=== PATIENT | female | born 1945 | race Caucasian/White ===

== ENCOUNTER → 2023-05-29 11:14 | Outpatient (CLI) | payer MEDICARE, OTHER, SELFPAY ==
[2023-05-29 12:14] LABS: Add Manual Diff / Slide Review NO; Basophils Absolute Auto 100 /uL (0-100); Basophils Percent Auto 0.7 % (0-2); Eosinophils Absolute Auto 100 /uL (0-450); Eosinophils Percent Auto 0.7 % (2-4); Hematocrit 36.8 % (36-46); Hemoglobin 12.5 g/dL (12.0-16.0); Lymphocytes Absolute Auto 1100 /uL (1100-4500); Lymphocytes Percent Auto 13.8 % (25-40); Mean Corpuscular Hemoglobin 33.2 PG (26-34); Mean Corpuscular Volume 97.5 fL (80-100); Monocytes Absolute Auto 800 /uL (0-900); Monocytes Percent Auto 10.6 % (3-14); Neutrophils Absolute Auto 5800 /uL (1500-7000); Neutrophils Percent Auto 74.2 % (50-75); Platelet Count 354 X10^3/uL (150-400); Red Blood Cell Count 3.78 X10^6/uL (4.0-5.2); Red Cell Distribution Width 14.3 % (11.6-14.8); White Blood Cell Count 7.8 X10^3/uL (4.5-11.0)
[2023-05-29 12:17] LABS: Appearance Urine UA CLEAR; Bilirubin Urine UA NEGATIVE (NEGATIVE); Color Urine UA YELLOW; Glucose Urine UA NEGATIVE (Negative); Ketones Urine UA NEGATIVE (NEGATIVE); Leukocyte Esterase Urine UA 1+ (NEGATIVE); Nitrite Urine UA NEGATIVE (Negative); Occult Blood Urine UA NEGATIVE (Negative); Protein Urine UA NEGATIVE (Negative); Specific Gravity Urine UA <=1.005 (1.000-1.035); Urobilinogen Urine UA 0.2 E.U./dL (0.2)
[2023-05-29 12:43] LABS: Bacteria Urine None Seen; Culture Indicated Urine Specimen Cultured; RBC Urine None Seen (0-5/HPF); Squamous Epithelial Cell Urine None Seen (0-5/HPF); WBC Urine 0-1/HPF (0-5/HPF); pH Urine UA 5.5 (4.5-8.0)
[2023-05-29 12:46] LABS: BUN Creatinine Ratio 26.7 (6-22); Blood Urea Nitrogen 16 mg/dL (7-17); Calcium 8.8 mg/dL (8.4-10.2); Carbon Dioxide 29 mmol/L (22-32); Chloride 98 mmol/L (98-107); Estimated Glomerular Filt Rate > 60 mL/min (>60); Glucose 108 mg/dL (80-110); HEMOLYSIS 44 (0-50); Potassium 4.2 mmol/L (3.4-5.1); Sodium 133 mmol/L (137-145)
[2023-05-30 04:30] LABS: Labcorp Hemoglobin (Hb) A1c 5.8 % (4.8-5.6)
== END ==
PROVIDERS: PCP Family Medicine; Referring Provider Orthopaedic Surgery; Visit Provider Orthopaedic Surgery
DX: Z01.818 Encounter for other preprocedural examination (principal); R73.9 Hyperglycemia, unspecified; Z01.812 Encounter for preprocedural laboratory examination; N39.0 Urinary tract infection, site not specified
CPT/HCPCS: 36415; 80048; 81001; 83036; 85025; 87086; 93005

== ENCOUNTER 2023-07-01 11:25 | Day surgery (SDC) | payer MEDICARE, OTHER, SELFPAY ==
[2023-06-23 12:49] VITALS: BMI 29.2
[2023-07-01] VITALS (13 sets, daily range): BP systolic 120–182; BP diastolic 42–99; PULSE 64–96; RESP 12–20; TEMP 35.8–36.6; O2SAT 92–100; BMI 28.5
--- NOTE | 2023-07-01 | DI.RAD.S_ITS ---
PROCEDURE: XR HIP W PEL IF DONE LT 2V INDICATIONS: ANTERIOR HIP TECHNIQUE: 2 views of the hip were acquired. COMPARISON: [facility], , XR HIP W PEL IF DONE RT 2V, 07/01/2023, 15:28. FINDINGS: Bones: Total left hip prosthesis in good position. Moderate right hip osteoarthritis. Degenerative changes noted lower lumbar spine. Pelvic ring is intact. Soft tissues: No suspicious soft tissue calcifications or masses. IMPRESSION: Total left hip prosthesis in good position. Approved by: Zia Sanders M.D. on 07/01/2023 at 17:32
--- NOTE | 2023-07-01 06:00 | DI.RAD.S_ITS ---
PROCEDURE: XR HIP W PEL IF DONE RT 2V INDICATIONS: ANTERIOR HIP TECHNIQUE: 2 view(s) of the hip acquired. COMPARISON: None. FINDINGS: Bones: Patient is status post right hip arthroplasty, with hardware components in expected positions. The hip joint appears congruent. The visualized bony structures appear intact. Soft tissues: Overlying postoperative changes are noted. No suspicious soft tissue densities. IMPRESSION: Expected postsurgical change for right hip arthroplasty. Dictated by: Tish Nowak MD, PhD on 07/01/2023 at 16:45 Approved by: Tish Nowak MD, PhD on 07/01/2023 at 16:45
[2023-07-01] MEDS: PREGABALIN 75 MG CAPSULE PO (11:49)
[2023-07-01] MEDS: ACETAMINOPHEN 325 MG TABLET 975 MG PO (11:49)
[2023-07-01] MEDS: LACTATED RINGERS 1,000 ML 42 ML IV ×2 (12:12→14:39)
[2023-07-01] MEDS: VANCOMYCIN 1,000 MG/200 ML PIGGYBACK 200 MG IV (12:55)
--- NOTE | 2023-07-01 13:33 | PM.PREOP ---
Pre-operative Note Interval Note History & Physical reviewed/Exam performed by Physician: Yes Changes to H&P: No
--- NOTE | 2023-07-01 13:34 | P.OP_ITS ---
Operative Date/Time/Diagnoses Date of procedure: 07/01/23 Time of procedure: 14:30 Pre-op diagnosis: Left total hip arthroplasty anterior approach Post-op diagnosis: same Procedure & Clinicians Procedure: Left total hip arthroplasty anterior approach Same procedure as scheduled: Yes Indications: The patient has had progressively worsening left hip pain with radiographic changes consistent with arthritis. Non-operative management has failed and the patient has requested total hip replacement. The risks, benefits and alternatives to surgery were discussed with the patient prior to proceeding. Risks discussed included, but were not limited to, failure to relieve pain, leg length discrepancy, dislocation, stiffness, infection, nerve damage, deep venous thrombosis, pulmonary embolism, stroke, coma, heart attack, permanent paralysis and , as well as the potential need for eventual revision of the prosthetic. Surgeon: Nelly Slater Maintenance And Operations Supervisor: Karan Ramirez Anesthesia Type: General and Spinal Operative Notes Findings: Severe left hip arthritis, small bone, adequate stability, Closure Type: primary Specimen(s): none sent Prosthetic devices, grafts, tissues, transplants, or devices: Anthology size 1 standard offset, 36 x -3 cobalt chrome, 52 R3 cup, neutral poly liner, one 6.5 mm screw Estimated Blood Loss (mL): 250 Blood products transfused: none Procedure in detail: The patient was brought to the operating room. Patient was carefully positioned in the supine position. Time-out was performed and antibiotics were given. Anesthesia was induced. She was positioned in the on the table in order to allow hyperextension of the hip. The left lower extremity was prepped and draped in a standard sterile fashion. An anterior left hip incision was made 1 fingerbreadth lateral to the anterior superior iliac spine and extended distally towards the greater trochanter. Dissection was carried out through skin and subcutaneous tissues. Superficial hemostasis was achieved. The fascia over the tensor fascia loulou was defined and incised with a knife. Two Allis clamps were used to grasp the fascia. Tensor fascia loulou was retracted laterally. A gelpi retractor was placed. Dissection was carried out down along the neck. The circumflex vessels were carefully identified and cauterized with the Aqua Mantis. A PA was used during the procedure and was essential for intraoperative retra ction. They were used for safe implantation of the components, assistance with hemostasis and assistance with visualization. There was good visualization of the femoral neck. A Cobra was placed superior to the neck and the gluteus fibers were carefully stripped from that superior aspect of the capsule. A 2nd retractor was placed along the inferior aspect of the neck. The rectus insertion along the capsule was partially released. A 3rd retractor that was then gently placed over the rim of the acetabulum under the rectus. Capsule was carefully incised and released from the intertrochanteric line circumferentially superior to the mid sagittal line and inferiorly to the mid sagittal line until the lesser trochanter was palpable. A tag stitch was placed both in the superior and inferior limb of the capsular insertion. Along the acetabulum capsule was also released up to the mid sagittal 12:00 position. A portion of the labrum was resected. A saw was used to perform an osteotomy at the level of the intertrochanteric line and the junction of the superior femoral neck leaving approximately 1 finger breath of residual inferior neck above the lesser trochanter. A 2nd cut was made along the femoral neck at the base of the head and a napkin ring of neck was removed. Corkscrew was placed in the femoral head and the head was removed without difficulty. Retractors were then repositioned around the acetabulum. Residual labrum was resected and additional osteophytes were removed. A reamer that was 4 mm below the templated size was placed by hand in the acetabulum and it was reamed to centralize the acetabulum. It was then reamed up to 2 under the templated size and fluoroscopy was brought in to confirm the position of the reaming and depth of reaming. I reamed 1 under the anticipated size. A trial cup was placed and noted that it was appropriately sized and fluoroscopy confirmed position and depth. The component was open and inserted without difficulty fluoroscopic imaging was used to confirm that the cup had been adequately seated and was well positioned. It was further stabilized with a single screw. Neutral poly liner was placed. The cup was tested and noted to be stable. Attention was then directed to the femur. The femur was gently hyperextended additional capsular release was performed as needed in order to allow adequate visualization of the proximal femur with elevation of the femur. Patient was placed in a hyperextended slightly adducted position with maximum external rotation. Box osteotome was used to check for any residual neck as well as scle rotic bone along the trochanter. Cromwell pepper was placed in the femur. Additional broaching was performed. Canal finder was used to determine the alignment of the canal and position. Size 1 broach was placed. The canal was then appropriately broached up to the templated size as long as there was adequate stability of the broach and serial advancement of the broach without excessive impingement. Specific attention was directed at avoiding varus attempting to direct the distal aspect of the broach more anteriorly and avoiding excessive anteversion. Trial reduction showed acceptable range of mot ion, good stability, no posterior impingement, quaker of leg length and appropriate lateral shuck. I also hyperflexed the hip and checked that there was no impingement anteriorly and there was good stability with flexion, adduction and internal rotation. Marcaine and Exparel were injected.. The stem was placed without difficulty. Repeat trial reduction and x-ray showed acceptable overall position, length, and no evidence of the femoral fracture. Final head was placed. Wound was meticulously irrigated with normal saline. The hip was reduced and additional Exparel and Marcaine were injected. The capsule was closed with interrupted nonabsorbable sutures. The fascia of the tensor was closed with interrupted and running Vicryl. No drain was placed. Any tensor fascia loulou muscle that appeared to be contused or injured which was a minimal amount was carefully resected. Capsule around the tensor was injected with Exparel and Marcaine. The skin was closed with barbed stitches for the subcutaneous tissue and skin. We also used a few skin clips. The wound was dressed sterilely. Brief Betadine soak was also used and was meticulously irrigated with normal saline. Patient was transferred to recovery room in satisfactory condition. Complications: none Post-operative Condition: stable Disposition: Acute Care Plan for aftercare: The patient will be maintained on a standard total hip replacement protocol with weight bearing as tolerated and anterior hip precautions. The patient will receive Aspirin and sequential compression devices for DVT prophylaxis. The patient will be discharged home when safe for the home environment.
[2023-07-01] MEDS: CEFAZOLIN 2 GM/100 ML PREMIX 100 ML IV ×2 (14:05→21:42)
[2023-07-01] MEDS: TRANEXAMIC ACID 1,000 MG VIAL 1000 MG INJ ×2 (14:29→16:15)
[2023-07-01] MEDS: BUPIVACAINE LIPOSOME 266 MG/20 ML VIAL INJ (14:41)
[2023-07-01] MEDS: BUPIVACAINE 0.25% (PF) 60 ML, EPINEPHrine 0.3 MG INJ (14:41)
--- NOTE | 2023-07-01 14:46 | SUR.OPER ---
Supine on padded Carpenter table with bilateral legs secured in padded positioning boots and suspended in positioning spars, operative leg in traction per surgeon. Head on one pillow. Arm on non-operative side secured on padded armboard <90 degrees abduction. Arm on operative side padded and resting across chest then secured with tape over sheet. Padded perineal post in place per surgeon.
[2023-07-01] MEDS: ACETAMINOPHEN 325 MG TABLET 650 MG PO (18:10)
[2023-07-01] MEDS: IBUPROFEN 400 MG TABLET PO ×2 (18:10→21:43)
[2023-07-01] MEDS: LACTATED RINGERS 1,000 ML 100 ML IV ×2 (18:10→21:44)
[2023-07-01] MEDS: ONDANSETRON 4 MG ODT PO (18:10)
[2023-07-01] MEDS: ALBUTEROL 2.5 MG/3 ML NEB (ADULT) INH (19:30)
[2023-07-01] MEDS: COLCHICINE 0.6 MG TABLET PO (21:42)
[2023-07-01] MEDS: ASPIRIN EC 81 MG TABLET PO (21:43)
[2023-07-01] MEDS: DOCUSATE 100 MG CAPSULE PO (21:43)
[2023-07-02] MEDS: OXYCODONE IR 5 MG TABLET PO (00:27)
[2023-07-02] MEDS: ACETAMINOPHEN 325 MG TABLET 650 MG PO ×3 (00:28→11:57)
[2023-07-02] MEDS: IBUPROFEN 400 MG TABLET PO ×3 (00:28→09:14)
[2023-07-02] MEDS: CEFAZOLIN 2 GM/100 ML PREMIX 100 ML IV (05:52)
[2023-07-02 06:00] VITALS: BP 131/58; PULSE 75; RESP 20; TEMP 36.1; O2SAT 97
[2023-07-02 06:15] LABS: Hematocrit 29.8 % (36-46); Hemoglobin 10.2 g/dL (12.0-16.0)
--- NOTE | 2023-07-02 07:58 | PM.PNPO.1 ---
Subjective Subjective Interval history: Patient is resting comfortably in bed this morning. She states that she had some increased pain last night which was well controlled with medication and ice. Ice has been helping a lot. Denies fever, chills, shortness of breath. No numbness or tingling to the distal extremity. Exam Vital Signs (past 8 hours): - 07/02/23 06:00 Temperature 97.0 F L Pulse Rate 75 Respiratory Rate 20 Blood Pressure 131/58 L Pulse Oximetry 97 Oxygen Flow Rate 0 Oxygen Delivery Method Room Air Oxygen Flow Rate 0 Narrative Exam Narrative: Pleasant 77 year old female. Awake, alert and oriented. Intraoperative aquacel bandage CDI. Mild bruising to lateral thigh. Strength and sensation intact to bilateral lower extremities. Bilateral calves soft, compressible, nontender to palpation. Objective Labs 07/02/23 06:00 Labs: Laboratory Results - last 24 hr 07/02/23 06:00 Hgb 10.2 L Hct 29.8 L PFSH Medical History Arthritis Asthma Basal cell carcinoma Concussion Elevated cholesterol History of pneumonia History of radius fracture History of shingles HTN (hypertension) Surgical History History of hemilaminectomy History of hysterectomy History of kyphoplasty History of removal of skin mole History of total knee arthroplasty History of total knee arthroplasty Hx of dilation and curettage Hx of surgical procedure Hx of surgical procedure Hx of tonsillectomy Social History household members: none Smoking Status: Former smoker alcohol intake: current Assessment & Plan Post-op Postoperative Procedures: Procedures Operation Date: 07/01/23 13:45 Actual Procedure Side Surgeon p Total Hip Arthroplasty-Anterior Left Nelly Slater MD Postoperative day: 1 Postoperative status: doing well Postoperative status narrative: Patient progressing as expected after left anterior total hip arthroplasty Postoperative plan: routine post-op care Quality VTE Deep Vein Thrombosis/Pulmonary Embolism Present on Admission: No
--- NOTE | 2023-07-02 08:03 | P.DS_ITS ---
History of Present Illness History of Present Illness Chief complaint: Left Total Hip Arthroplasty/Anterior 07/01 Narrative: Patient is resting comfortably in bed this morning. She states that she had some increased pain last night which was well controlled with medication and ice. Ice has been helping a lot. Denies fever, chills, shortness of breath. No numbness or tingling to the distal extremity. Discharge Providers Provider Discharge Date: 07/02/23 Primary care physician: Rani Mcgowan MD Consults: 07/01/23 06:00 Consult to Anesthesiology Routine Comment: Consulting Provider: Anesthesiologist Reason for consultation: Regional block for post operative pain control 07/01/23 17:26 Consult to Discharge Planning Routine Comment: Consult to Occupational Therapy Evaluate & Treat Comment: Physician Instructions: Evaluate and treat Consult to Physical Therapy Evaluate & Treat Comment: Physician Instructions: post op SANDRA protocol Discharge provider: Anita Moreau PA-C Summary Hospital Course Discharge Diagnosis: s/p left anterior total hip arthroplasty Hospital Course: Operative Date/Time/Diagnoses Date of procedure: 07/01/23 Time of procedure: 14:30 Pre-op diagnosis: Left total hip arthroplasty anterior approach Post-op diagnosis: same Procedure & Clinicians Procedure: Left total hip arthroplasty anterior approach Same procedure as scheduled: Yes Indications: The patient has had progressively worsening left hip pain with radiographic gonzalez ges consistent with arthritis. Non-operative management has failed and the patient has requested total hip replacement. The risks, benefits and alternatives to surgery were discussed with the patient prior to proceeding. Risks discussed included, but were not limited to, failure to relieve pain, leg length discrepancy, dislocation, stiffness, infection, nerve damage, deep venous thrombosis, pulmonary embolism, stroke, coma, heart attack, permanent paralysis and , as well as the potential need for eventual revision of the prosthetic. Surgeon: Nelly Slater Welfare Director: Karan Ramirez Anesthesia Type: General and Spinal Operative Notes Findings: Severe left hip arthritis, small bone, adequate stability, Closure Type: primary Specimen(s): none sent Prosthetic devices, grafts, tissues, transplants, or devices: Anthology size 1 standard offset, 36 x -3 cobalt chrome, 52 R3 cup, neutral poly liner, one 6.5 mm screw Estimated Blood Loss (mL): 250 Blood products transfused: none Status at Discharge Cognitive/behavioral status at discharge: at baseline, oriented Functional status at discharge: uses cane/walker Overall status at discharge: patient is progressing back to baseline Exam Vital Signs (past 8 hours): - 07/02/23 06:00 Temperature 97.0 F L Pulse Rate 75 Respiratory Rate 20 Blood Pressure 131/58 L Pulse Oximetry 97 Oxygen Flow Rate 0 Oxygen Delivery Method Room Air Oxygen Flow Rate 0 Narrative Exam Narrative: Pleasant 77 year old female. Awake, alert, and oriented. Intraoperative Aquacel CDI. Strength and sensation intact to bilateral lower extremities. Bilateral c dunne soft, compressible, nontender to palpation. Objective Labs 07/02/23 06:00 Labs: Laboratory Results - last 24 hr 07/02/23 06:00 Hgb 10.2 L Hct 29.8 L PFSH Medical History Arthritis Asthma Basal cell carcinoma Concussion Elevated cholesterol History of pneumonia History of radius fracture History of shingles HTN (hypertension) Surgical History History of hemilaminectomy History of hysterectomy History of kyphoplasty History of removal of skin mole History of total knee arthroplasty History of total knee arthroplasty Hx of dilation and curettage Hx of surgical procedure Hx of surgical procedure Hx of tonsillectomy Social History household members: none Smoking Status: Former smoker alcohol intake: current Discharge Assessment & Plan Assessment and Plan Assessment: Patient is progressing well following left anterior SANDRA Plan of Treatment: Plan to work with physical therapy today. Discharge once safe for home e nvironment and cleared by PT. Continue multimodal pain regimen as needed. Keep dressing clean, dry, and intact until 2 week follow up with orthopedics. Discharge Plan Discharge Plan Patient Disposition: Home Discharge orders & Medications Discharge Orders: Discharge (Order); Ordered 07/02/23 Ordered By: Anita Moreau Prescriptions: New acetaminophen 325 mg Tablet 650 mg PO Q6H Qty: 120 0RF aspirin 81 mg Tablet,Delayed Release (Dr/Ec) 81 mg PO BID Qty: 84 0RF oxycodone 5 mg Tablet 5 mg PO Q4-6H PRN (Reason: Pain, Moderate (4-6)) Qty: 40 0RF Continued fluoxetine 40 mg Capsule 40 mg PO DAILY latanoprost 0.005 % Drops 1 drp OPHTHALMIC (EYE) DAILY atorvastatin 10 mg Tablet 10 mg PO DAILY leflunomide 10 mg Tablet 10 mg PO DAILY amlodipine 5 mg Tablet 7.5 mg PO DAILY acetaminophen 500 mg Tablet 500 mg PO QID alprazolam 0.25 mg Tablet 0.25 mg PO BEDTIME PRN (Reason: Insomnia) methotrexate sodium 15 mg Tablet 30 mg PO QWEEK Rx Instructions: split dose: 15mg am, 15mg pm ibuprofen 200 mg Tablet 200 mg PO Q6H PRN (Reason: Pain (Scale Score 1-3)) folic acid 1 mg Tablet 1 mg PO DAILY montelukast [Singulair] 10 mg Tablet 10 mg PO DAILY colchicine (gout) 0.6 mg Tablet 0.6 mg PO BID losartan 100 mg Tablet 100 mg PO DAILY loratadine [Claritin] 10 mg Tablet 10 mg PO DAILY levalbuterol tartrate 45 mcg/actuation Hfa Aerosol Inhaler 1 puff INHALATION Q4-6H PRN (Reason: Shortness Of Breath) ibandronate [Boniva] 150 mg Tablet 150 mg PO QMONTH Qvar RediHaler 80 mcg/actuation Hfa Aerosol Breath Activated 1 inh INHALATION BID PRN (Reason: Wheezing) Follow up/Referrals: Nelly Slater MD [Physician] - As previously scheduled (Follow up with Dannielle Moreau PA-C, on 07/15/2023 @ 3:00 pm at [facility] in [place].) Rani Mcgowan MD [Primary Care Provider] - Diet/Activity/Treatments Diet: Diet as Tolerated Activity: Weightbearing as tolerated to left leg. Anterior hip precautions. Cold/Heat Therapy: Ice to hip as needed Skin/Wound/Dressing Care Report to your healthcare provider any signs of infection, such as:: chills, fever, night sweats, unusual drainage and unusual redness Dressing: May shower. Leave dressing in place until follow up in office. No bathing or otherwise soaking incision. Call the office if dressing becomes saturated inside. Visit Report/Discharge Packet Instructions: DI for Hip Replacement Stand Alone Forms: Patient Portal/API, Surgery Discharge Discharge Data Primary Care Provider: Rani Mcgowan Attending Provider: Nelly Slater VTE Deep Vein Thrombosis/Pulmonary Embolism Present on Admission: No
--- NOTE | 2023-07-02 08:20 | OT.IP.EVAL ---
Current Diagnoses Unilateral primary osteoarthritis, left hip (07/01/23) Surgery Performed Operation Date: 07/01/23 13:45 Actual Procedures p Total Hip Arthroplasty-Anterior(Left) - Nelly Slater MD Past Medical History (Last Reviewed 07/02/23 @ 08:01 by Anita Moreau PA-C) Arthritis Asthma Basal cell carcinoma Concussion Elevated cholesterol History of pneumonia History of radius fracture History of shingles HTN (hypertension) Surgical History (Last Reviewed 07/02/23 @ 08:01 by Anita Moreau PA-C) History of hemilaminectomy History of hysterectomy History of kyphoplasty History of removal of skin mole History of total knee arthroplasty History of total knee arthroplasty Hx of dilation and curettage Hx of surgical procedure Hx of surgical procedure Hx of tonsillectomy Occupational Therapy Inpatient Evaluation/Re-Eval M1 PT/OT-IP Prior Functional Status Start: 07/02/23 08:44 Freq: NEEDED Status: Active Protocol: Document 07/02/23 08:20 [facility] (Rec: 07/02/23 09:06 [facility] [id number]) Medical Review Prior Functional Status Communication Independent Mobility and Gait Pt states only able to walk for 5 minutes before having to stop. Activities of Daily Living and IADL's Pt able to do her ADl and IADL needs with increased time. Social History Household Members none Living Arrangements House Number of Floors (Floors) One Floor Number of Stairs To Enter/Railing? Pt just has a threshold in order to get into her house. Home Environment Standard Height Toilet,Walk in Shower,Bidet Home Equipment Front Wheel Walker,Four Wheel Walker,Straight Cane,Senior Hadoop Developer, Grab Bars Near Toilet,Grab Bars In Shower Additional Social History Comment Pt's daughters to alternate to be able to stay with her. M2 OT-IP Current Condition Start: 07/02/23 08:44 Freq: Status: Active Protocol: Document 07/02/23 08:20 [facility] (Rec: 07/02/23 09:06 [facility] [id number]) Occupational Therapy Current Condition Current Condition Evaluation Date 07/02/23 Treatment Diagnosis S/P L SANDRA Anterior approach Diagnosis Onset Date 07/01/23 Post Operative Precautions Anterior Hip Precautions No Hip Extension,No Hip External Rotation M3 OT- IP Subjective and Pain Start: 08/16/23 08:44 Freq: Status: Active Protocol: Document 07/02/23 08:20 [facility] (Rec: 07/02/23 09:06 [facility] [id number]) OT- Subjective Occupational Therapy Visit Type Type Initial Evaluation Visit Start Time 08:20 Visit Stop Time 08:42 Total Visit Minutes 22 Occupational Therapy Visit Comments Patient Comments Pt already up with the nurse to the bathroom when OT came to see the pt. Patient/Caregiver Goals TO go home. OT Pain Assessment Pain When Pain Assessed During Mobility Pain Present Pain Present Denied Pain M4 OT- IP ADL's Start: 07/02/23 08:44 Freq: Status: Active Protocol: Document 07/02/23 08:20 [facility] (Rec: 07/02/23 09:06 [facility] [id number]) OT [id number]-Tfqfzeh General Evaluation Self-Feeding Ability Independent OT ADL-Grooming General Evaluation Grooming Ability Independent Comments OT Grooming Comments Able to stand with FWW, vc to keep the FWW in front of her at all times. OT ADL-Oral Care General Eval Oral Care Ability Independent OT ADL-Dressing General Eval Lower Body Dressing Ability Minimal Assistance Comments OT Dressing Comments Assist to straighten out her sock. Pt states will not be wearing socks and states good understanding to not externally rotate her left hip outward for any dressing needs. OT ADL-Toileting General Evaluation Toileting Ability Standby Assistance Comments OT Toileting Comments Pt able to use the toilet with SBA. Pt states has a bidet at home and also wears protection briefs. Pt has a toilet safety frame surrounding her toilet. OT ADL-Bathing Comments OT Bathing Comments Pt states has a built in seat and grab bars in the shower M5 OT- IP IADL's Start: 07/02/23 08:44 Freq: Status: Active Protocol: Document 07/02/23 08:20 [facility] (Rec: 07/02/23 09:06 [facility] [id number]) OT-Instrumental Activities of Daily Living Deficits IADL Deficits Identified Deficits Home Safety Awareness Awareness of Need for Assistance at Home Good Awareness Ability to Problem Solve Emergency Able to Problem Solve Situations Home Safety Comments Pt's daughters to be staying with her to assist with her needs. Medication Management Medication Management No Deficits Identified Money Management Money Management No Deficits Identified Meal Preparation Meal Preparation Caregiver Provides Assist Carbon Setter Carbon Setter Caregiver Provides Assist M6 OT- IP Functional Cognition Start: 07/02/23 08:44 Freq: Status: Active Protocol: Document 07/02/23 08:20 [facility] (Rec: 07/02/23 09:06 [facility] [id number]) Cognitive Factors Limiting Selfcare Function Cognitive Ability Level of Alertness Alert Patient Orientation Name,Age,Birthday,Month,Date, Year,Day of Week,Place, Situation Attention Span Ability Capable of Focused Attention, Capable of Sustained Attention Safety Awareness Decreased Ability to Apply Precautions Cognitive Comments Cognitive Assessment Comments Pt intact and mainly just needing vc to take smaller steps to ensure that her left hip does not go into hypertension. OT- Vision and Hearing OT- Hearing Assessment OT- Hearing Assessment WFL OT- Vision Assessment Visual Acuity Glasses All The Time M7 OT- IP Mobility and Balance Start: 07/02/23 08:44 Freq: Status: Active Protocol: Document 07/02/23 08:20 [facility] (Rec: 07/02/23 09:06 [facility] [id number]) OT-Transfer Assessment Sit to and From Stand Sit to and from Stand Standby Assistance Transfers Transfer Ability Standby Assistance Technique Transfer Destination Chair,Toilet Transfer Technique Stand Step Pivot Devices Transfer Assistive Devices Front Wheeled Walker Comments Mobility Comments SBA with mobility in the room with FWW. OT- Gait Assessment Assistive Devices Assistive Device Front Wheeled Walker OT- Balance Assessment Sitting Balance and Reactions Static Sitting Balance Ability Normal Dynamic Sitting Balance Ability Good Standing Balance and Reactions Static Standing Balance Ability Good Dynamic Standing Balance Ability Good M8 OT- IP Objective Assessments Start: 07/02/23 08:44 Freq: Status: Active Protocol: Document 07/02/23 08:20 [facility] (Rec: 07/02/23 09:06 [facility] [id number]) OT Strength Comments Strength Comments WFl for age and lifestyle. OT- Coordination Assessment Comments Coordination Comments Arthritic change in her hands. M9 OT- IP Assessment and Plan Start: 07/02/23 08:44 Freq: Status: Active Protocol: Document 07/02/23 08:20 [facility] (Rec: 07/02/23 09:06 [facility] [id number]) OT Summary Assessment and Plan Potential Rehabilitation Potential Excellent Analytic Complexity at Evaluation Low Summary OT Impairments Balance,Functional Mobility, Dressing,Bathing,Shower Transfers Progress Towards Goals Progressing Toward Goals Assessment Summary Pt low complexity and doing well after S/P L SANDRA anterior approach. Pt mainly just needing occasional reminders to not take too long of steps to ensure pt does not hyperextend her left hip. Pt's daugthers to be staying with her to assist with her needs. Pt to go home with assist and outpt PT when medically stable . Goals Dressing Goal Independent Toileting Goal Independent Bathing Goal Independent Toilet Transfer Goal Independent Shower Transfer Goal Independent Days to Meet Goals 2 Frequency of Treatment Frequency Of Treatment Once a Day Treatment Plan OT Treatment Plan ADL Training,Functional Mobility,Patient/Family Education,Discharge Planning Discharge Recommendations OT Discharge Recommendations Home with Assistance, Outpatient PT Transportation Needs at Discharge Private Vehicle
[2023-07-02] MEDS: ASPIRIN EC 81 MG TABLET PO (09:14)
[2023-07-02] MEDS: DOCUSATE 100 MG CAPSULE PO (09:14)
[2023-07-02] MEDS: FLUoxetine 20 MG CAPSULE 40 MG PO (09:15)
[2023-07-02] MEDS: COLCHICINE 0.6 MG TABLET PO (09:15)
[2023-07-02] MEDS: LORATADINE 10 MG TABLET PO (09:15)
[2023-07-02] MEDS: ATORVASTATIN 20 MG TABLET 10 MG PO (09:15)
[2023-07-02] MEDS: MONTELUKAST 10 MG TABLET PO (09:15)
[2023-07-02] MEDS: FOLIC ACID 1 MG TABLET PO (09:15)
[2023-07-02 10:00] VITALS: BP 145/52; PULSE 77; RESP 16; TEMP 36.2; O2SAT 96
--- NOTE | 2023-07-02 10:37 | PT.IIE ---
Current Diagnoses Unilateral primary osteoarthritis, left hip (07/01/23) Surgery Performed Operation Date: 07/01/23 13:45 Actual Procedures p Total Hip Arthroplasty-Anterior(Left) - Nelly Slater MD Surgical History (Last Reviewed 07/02/23 @ 08:01 by Anita Moreau PA-C) History of hemilaminectomy History of hysterectomy History of kyphoplasty History of removal of skin mole History of total knee arthroplasty History of total knee arthroplasty Hx of dilation and curettage Hx of surgical procedure Hx of surgical procedure Hx of tonsillectomy Medical History (Last Reviewed 07/02/23 @ 08:01 by Anita Moreau PA-C) Arthritis Asthma Basal cell carcinoma Concussion Elevated cholesterol History of pneumonia History of radius fracture History of shingles HTN (hypertension) Physical Therapy Inpatient Evaluation/Re-Eval M1 PT/OT-IP Prior Functional Status Start: 07/02/23 08:44 Freq: NEEDED Status: Active Protocol: Document 07/02/23 09:15 [facility] (Rec: 07/02/23 10:37 [facility] [id number]) Medical Review Prior Functional Status Medical History Reviewed Yes Diet/Fluid Consistency Regular Communication Independent Mobility and Gait Pt states only able to walk for 5 minutes before having to stop. Activities of Daily Living and IADL's Pt able to do her ADl and IADL needs with increased time. Social History Household Members none Living Arrangements House Number of Floors (Floors) One Floor Number of Stairs To Enter/Railing? Pt just has a threshold in order to get into her house. Home Environment Standard Height Toilet,Walk in Shower,Bidet Home Equipment Front Wheel Walker,Four Wheel Walker,Straight Cane,Mud Worker, Grab Bars Near Toilet,Grab Bars In Shower Employment Status Retired Additional Social History Comment Pt's daughters to alternate to be able to stay with her. M2 PT-IP Current Condition Start: 07/02/23 08:00 Freq: NEEDED Status: Active Protocol: Document 07/02/23 09:15 [facility] (Rec: 07/02/23 10:37 [facility] [id number]) Physical Therapy Current Condition Current Condition Evaluation Date 07/02/23 Treatment Diagnosis Left anterior hip replacement Onset Date 07/01/23 M3 PT-IP Subjective Start: 07/02/23 08:00 Freq: NEEDED Status: Active Protocol: Document 07/02/23 09:15 [facility] (Rec: 07/02/23 10:37 [id number]) Subjective Physical Therapy Visit Type Type Initial Evaluation Visit Start Time 09:15 Visit Stop Time 09:40 Total Visit Minutes 25 Number of OCC THER Visits 0 Physical Therapy Visit Comments Patient Comments I'm feeling okay. Patient Goals To go home with her two daughters' help Therapy Pain Assessment Pain When Pain Assessed During Mobility Pain Present Pain Present Pain Reported Location Left Hip Intensity 2 Scale Used Numeric (0 - 10) Pain Management Techniques Distraction,Re-positioning M4 PT-IP Mobility and Gait Start: 07/02/23 08:00 Freq: NEEDED Status: Active Protocol: Document 07/02/23 09:15 [facility] (Rec: 07/02/23 10:37 [id number]) PT-Bed Mobility Assessment Supine to Sit Supine to Sit Independent,Head of Bed Elevated Sit to Supine Sit to Supine Independent,Bedrails Scooting Scooting to Edge of Bed Independent Scooting Up and Down in Bed Independent PT-Transfer Assessment Sit to and From Stand Sit to and from Stand Independent,Standby Assistance ,1 Person Assistance,Use of Upper Extremities Equipment Transfer Assistive Device Gait Belt,Front Wheeled Walker Orthotic/Prosthetic Devices or Brace: No Gait Assessment Gait Gait Assistance Required: Standby Assistance Distance (Feet) 100 Able to Maintain Weight Bearing Status Yes During Gait Assistive Devices Assistive Device Gait Belt,4 Wheeled Walker Orthotic/Prosthetic Devices or Brace: No Gait Deviations General Gait Pattern Antalgic,Decreased Stride Length Factors Limiting Gait Function Factors Limiting Gait Function Pain Comments Gait Comments Pt gait trains 5'x1, 80'x1 and 100'x1 with SBA to superv assistance with RW: she initially performs step-to gait and then does much better with step-through, normal gait, with cues to not step back too far with backing up to maintain anterior hip precautions. Her forward steps are not too far with normal gait pattern. Stair Climbing Assessment Evaluation Level of Assist On Stairs Standby Assistance,1 Person Assistance Devices Stair Climbing Assistive Devices Front Wheel Walker Technique/Endurance Stair Climbing Direction Ascend and Descend Stair Climbing Technique Step to Step Number of Steps Climbed 1 Query Text: Stair Climbing Set # Repetitions (reps) 1 Comments Stair Climbing Comments Use small curb-size step to mimic threshold at her house and she performs well with SBA , ascend first with right foot and descend first with left foot PT-Balance Assessment Sitting Balance and Reactions Static Sitting Balance Ability Good Dynamic Sitting Balance Ability Good Standing Balance and Reactions Static Standing Balance Ability Good Dynamic Standing Balance Ability Good Device Used RW M5 PT-IP Objective Assessments Start: 07/02/23 08:00 Freq: NEEDED Status: Active Protocol: Document 07/02/23 09:15 [facility] (Rec: 07/02/23 10:37 [id number]) Orientation Orientation/Cognition Level of Alertness Alert Orientation Name,Age,Birthday,Month,Date, Year,Day of Week,Place, Situation Language Function Ability No Deficits Noted Safety Awareness Understands Safety Issues Memory Description No Deficits Noted Gross Range of Motion Upper Extremity ROM Impairments Defer to OT Lower Extremity ROM Assessment Left Impaired Strength Lower Extremity Strength Assessment Left Impaired Comments Strength Comments MMT LLE deferred post-op and ankle and knee appear WFLs Sensation Assessment Sensation Gross Sensation WNL M6 PT-IP Treatment Start: 07/02/23 08:00 Freq: NEEDED Status: Active Protocol: Document 07/02/23 09:15 [facility] (Rec: 07/02/23 10:37 [id number]) Physical Therapy Treatment Education Education Provided Precautions,Weight Bearing Status,Post-Op Packet,Safety M7 PT-IP Assessment and Plan Start: 07/02/23 08:00 Freq: NEEDED Status: Active Protocol: Document 07/02/23 09:15 [facility] (Rec: 07/02/23 10:37 [id number]) PT Summary Assessment and Plan Potential Rehabilitation Potential Good Status of Condition at Evaluation Stable Summary Progress Towards Goals Safe For Discharge Assessment Summary Pt is a 77 y/o female presenting with good mobility post-op. Her BP in [facility] is low in sitting before treatment and before BP meds given today at 106/43, 78. She has some light-headedness after third, longer gait trial and her BP increases with systolic BP greater than 130 mmHg. Pt will d/c home with the help of her daughters. She does not have any further acute PT needs. She states she is setting up [facility] at d/c and PT does educate her that she will benefit from OPPT. Frequency of Treatment Frequency Of Treatment Discharge Precautions Anterior Hip Precautions No Hip Extension,No Hip External Rotation Weight Bearing Status Weight Bearing Status Weight Bear as Tolerated Recommendations To Nursing Amount of Assist Needed Standby Assistance,1 Person Assist Discharge Recommendations PT Discharge Recommendations Home with Assistance, Outpatient PT Transportation Needs at Discharge Private Vehicle
--- NOTE | 2023-07-02 13:09 | CM.DANOTE ---
Discharge Planning/Care Management CM Discharge Assessment Start: 07/02/23 12:56 Freq: Status: Active Protocol: Document 07/02/23 12:56 LORIE (Rec: 07/02/23 13:09 [facility] [id number]) Discharge Planning Assessment Assigned [employer] DPOA/Assigned Designee Name Zainab Rubin [phone] or Rani Rubin [phone]- daughters Advance Directives? Yes Advance Directives on File No History Provided By Patient,Medical Record Prior Living Arrangements House Household Members none Type of transporation used prior to Drives own vehicle admit Independent with ADL's Yes Is patient alert and oriented? Yes Barriers to Discharge No Comment POD1 from left SANDRA, patient planned to return home w/ daughters to assist and therapies have cleared her for this plan, no needs from this CM team identified Discharge Plan Home Transportation Arrangement Family Referrals Initiated None needed
--- NOTE | 2023-07-02 14:26 | PC.NURSE ---
Pt discharged home at 1340, escorted off floor in wheelchair, accompanied by hospital staff and daughter. IV removed, discharge teaching provided including new medications, anterior hip precautions, follow up appointments and wound care. Questions answered. Patient left the floor with all belongings.
== END 2023-07-02 14:00 | disposition home or self-care (01) ==
LOC: OR 11:26 → AC 11:27
PROVIDERS: PCP Family Medicine; Referring Provider Orthopaedic Surgery; Visit Provider Orthopaedic Surgery
PROC: (CPT 27130; principal; 2023-07-01 13:45)
DX: M16.12 Unilateral primary osteoarthritis, left hip (principal)
CPT/HCPCS: 27130; 36415; 73502; 76000; 85014; 85018; 94640; 97161; 97165; 97530; C1776; C9290; J0171; J0690; J2250; J2704; J7613

== ENCOUNTER 2024-09-14 11:06 | Inpatient (IN) | payer MEDICARE, OTHER, SELFPAY ==
[2023-07-01 11:33] VITALS: BMI 28.5
[2024-09-06 12:02] VITALS: BMI 28.3
[2024-09-14] VITALS (10 sets, daily range): BP systolic 134–184; BP diastolic 55–82; PULSE 74–89; RESP 12–16; TEMP 36.1–36.6; O2SAT 93–98; BMI 27.9
--- NOTE | 2024-09-14 | DI.RAD.S_ITS ---
PROCEDURE: [id number] W PEL IF PERFORMED INDICATIONS: LEFT TOTAL HIP REVISION TECHNIQUE: Fluoroscopic guidance utilized for a left total hip arthroplasty COMPARISON: None. FINDINGS: Fluoroscopic images submitted for a left total hip arthroplasty. Please see operative note for further discussion. IMPRESSION: Fluoroscopic guidance. Dictated by: Yuri Machado M.D. on 09/14/2024 at 19:27 Approved by: Yuri Machado M.D. on 09/14/2024 at 19:28
--- NOTE | 2024-09-14 06:00 | DI.RAD.S_ITS ---
PROCEDURE: XR HIP W PEL IF DONE LT 2V INDICATIONS: SANDRA TECHNIQUE: 2 view(s) of the hip acquired. COMPARISON: [facility], [place], XR HIP W PEL IF DONE LT 2V, 07/01/2023, 17:01. [facility], [place], XR HIP W PEL IF DONE RT 2V, 07/01/2023, 15:28. FINDINGS: Bones: Patient is status post left hip arthroplasty, with hardware components in expected positions. The hip joint appears congruent. The visualized bony structures appear intact. Soft tissues: Overlying postoperative changes are noted. No suspicious soft tissue densities. IMPRESSION: Expected post-operative appearance of a hip arthroplasty. Dictated by: Yuri Machado M.D. on 09/14/2024 at 19:03 Approved by: Yuri Machado M.D. on 09/14/2024 at 19:03
[2024-09-14] MEDS: LACTATED RINGERS 1,000 ML 42 ML IV ×2 (12:14→18:00)
[2024-09-14] MEDS: VANCOMYCIN 1,000 MG/200 ML PIGGYBACK 200 MG IV (12:30)
--- NOTE | 2024-09-14 13:56 | SUR.PREOP ---
Patient ambulating to the bathroom.
[2024-09-14] MEDS: ACETAMINOPHEN 325 MG TABLET 975 MG PO (14:05)
--- NOTE | 2024-09-14 14:08 | SUR.PREOP ---
Delay explained to patient and family. V/U. No other needs voiced at this time.
--- NOTE | 2024-09-14 15:15 | PM.PREOP ---
Pre-operative Note Interval Note History & Physical reviewed/Exam performed by Physician: Yes Changes to H&P: No
--- NOTE | 2024-09-14 15:15 | PM.PREOP ---
Pre-operative Note Interval Note History & Physical reviewed/Exam performed by Physician: Yes Changes to H&P: No
--- NOTE | 2024-09-14 15:17 | PM.OP.1 ---
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 Unfortunately she developed posterior instability. She did have a minor amount of subsidence of her stem and felt that her leg was a little bit short. Non-operative management has failed and the patient has requested revision total hip replacement. She has a history of 2 dislocations. The risks, benefits and alternatives to surgery were discussed with the patient prior to proceeding. Risks discussed included, but were not limited to, failure to relieve pain, leg length discrepancy, dislocation, stiffness, infection, nerve damage, deep venous thrombosis, pulmonary embolism, stroke, coma, heart attack, permanent paralysis and , as well as the potential need for eventual revision of the prosthetic. Surgeon: Nelly Slater Director Agricultural Services: Karan Ramirez Anesthesia Type: General Operative Notes Findings: Instability of the hip noted preoperatively, patient was quite lax with longitudinal traction. With hyperflexion the hip could be noted to sublux slightly posteriorly. Marked improvement in the in debility with dual mobility and lengthening Closure Type: primary Specimen(s): other (Culture and sensitivity and PCR) Prosthetic devices, grafts, tissues, transplants, or devices: [employer]hew dual mobility 52 liner, 28 mm +8 Oxinium head with dual mobility liner 40 x 28 Estimated Blood Loss (mL): 100 Blood products transfused: none Procedure in detail: The patient was brought to the operating room. Patient was carefully positioned in the supine position. Time-out was performed and antibiotics were given. Anesthesia was induced. She was positioned in the on the table in order to allow hyperextension of the hip. I initially started with an examination under anesthesia with fluoroscopy. We did longitudinal traction the hip was quite loose and easily subluxable with global mobility. I also specifically hyperflex the hip and adducted it and got a lateral C-arm view which did not show specific impingement but did look like there was a tendency towards posterior subluxation. She was then carefully positioned on the [place] table. The left lower extremity was prepped and draped in a standard sterile fashion. An anterior left hip incision was made 1 fingerbreadth lateral to the anterior superior iliac spine and extended distally towards the greater trochanter. Dissection was carried out through skin and subcutaneous tissues. I excised the patient's previous skin incision. Superficial hemostasis was achieved. There was a slight fascial patchy area suggesting prior fluid formation or seroma with healing. The fascia over the tensor fascia loulou was defined and the patient's previous incision along the fascia was carefully mobilized going through scar and carefully protecting the tensor fascia loulou. Two Allis clamps were used to grasp the fascia. Tensor fascia loulou was retracted laterally. A gelpi retractor was placed. Dissection was carried out down into the capsule. Fluid was removed and sent for culture and sensitivity. It was clear and did not appear purulent or suggestive of infection. Hemostasis was achieved with the Aqua Mantis. A PA was used during the procedure and was essential for intraoperative retraction and safe implantation of the components. There was good visualization of the femoral prosthesis and there was synovitis in the capsule. A specimen of synovium was sent for PCR and culture and sensitivity. A Cobra was placed superior to the neck. A 2nd retractor was placed along the inferior aspect of the neck and capsule. Capsule was mobilized by removing the prior tag stitches and placing new stitches. A tag stitch was placed both in the superior and inferior limb of the capsular insertion. With traction the hip was easily subluxable. The hip was dislocated. The head was removed. I carefully examined the overall position of the stem which looked like it had appropriate version. Acetabulum appeared to be in an appropriate position. I looked at this specifically at the anterior aspect of the acetabulum the superior aspect of the acetabulum. There did not appear to be an obvious area for impingement. I checked around the rim of the acetabular component. I looked at doing either a extended +4 acetabular liner or dual mobility and felt that dual mobility was a better option. The acetabular liner was removed without difficulty. Cultures were sent deep in the acetabulum and from the femur. The dual mobility liner was placed without difficulty. Trial reductions were then done with a +0 and a +4 femoral head. With a +4 femoral head there was good stability in hyperextension external rotation and with flexion within the limits of being. Adequate tension with longitudinal traction. Trial reduction showed acceptable range of motion, good stability, no posterior impingement, zoroastrian of leg length and appropriate lateral shuck. I also hyperflexed the hip and checked that there was no impingement anteriorly and there was good stability with flexion, adduction and internal rotation. Intraoperative films showed acceptable offset and leg lengths. Marcaine and Exparel were injected. Final head was placed. Wound was meticulously irrigated with normal saline. The hip was reduced and additional Exparel and Marcaine were injected. The capsule was closed with interrupted nonabsorbable sutures specifically attempting to reinforce the posterior capsule. The fascia of the tensor was closed with interrupted and running Vicryl. No drain was placed. Capsule around the tensor was injected with Exparel and Marcaine. The skin was closed with barbed stitches for the subcutaneous tissue and skin. We also used surgical glue. The wound was dressed sterilely. Brief Betadine soak was also used and was meticulously irrigated with normal saline. Patient was transferred to recovery room in satisfactory condition. Complications: none Post-operative Condition: stable Disposition: Acute Care Plan for aftercare: The patient will be maintained on a standard total hip replacement protocol with weight bearing as tolerated and anterior hip and posterior precautions. Plan is to attempt keep her foot at neutral and avoid hip hyperflexion and adduction and hyperextension. The patient will receive Aspirin and sequential compression devices for DVT prophylaxis. The patient will be discharged home when safe for the home environment.
[2024-09-14] MEDS: TRANEXAMIC ACID 1,000 MG VIAL 1000 MG INJ ×2 (16:07→17:50)
[2024-09-14] MEDS: CEFAZOLIN 2 GM/100 ML PREMIX 100 ML IV ×2 (16:08→22:18)
--- NOTE | 2024-09-14 16:37 | SUR.OPER ---
Supine on padded [place] table with bilateral legs secured in padded positioning boots and suspended in positioning spars, operative leg in traction per surgeon. Head on one pillow. Arm on non-operative side secured on padded armboard <90 degrees abduction. Arm on operative side padded and resting across chest then secured with tape over sheet. Padded perineal post in place per surgeon.
[2024-09-14] MEDS: BUPIVACAINE LIPOSOME 266 MG/20 ML VIAL INJ (16:48)
[2024-09-14] MEDS: BUPIVACAINE 0.25% (PF) 60 ML, EPINEPHrine 0.3 MG INJ (16:48)
[2024-09-14] MEDS: ACETAMINOPHEN 325 MG TABLET 650 MG PO (22:14)
[2024-09-14] MEDS: COLCHICINE 0.6 MG TABLET PO (22:15)
[2024-09-14] MEDS: ASPIRIN EC 81 MG TABLET PO (22:15)
[2024-09-14] MEDS: DOCUSATE 100 MG CAPSULE PO (22:15)
[2024-09-14] MEDS: OXYCODONE IR 5 MG TABLET PO (22:15)
[2024-09-14] MEDS: ATORVASTATIN 20 MG TABLET 10 MG PO (22:15)
[2024-09-14] MEDS: FOLIC ACID 1 MG TABLET PO (22:16)
[2024-09-14] MEDS: LOSARTAN 50 MG TABLET 100 MG PO (23:46)
[2024-09-14] MEDS: MONTELUKAST 10 MG TABLET PO (23:47)
--- NOTE | 2024-09-15 00:06 | PC.NURSE ---
patient resting in bed comfortably. A&O x 4. respirations even and unlabored on room air. O2 sats 96%. lung sounds cta. abdomen soft, nontender with active bowel sounds in all 4 quads. denies nausea. surgical incision on left hip covered with an aquacell dressing with some shadow drainage. ambulated to bedside commode as a 1 person assist w/ fww & gait belt with no issues. voided 300 ml, urine clear and yellow. after ambulating back to bed, complaining of 4/10 aching pain in the left hip. ice packs applied and prn oxycodone 5mg given. LR running at 100 mls/hr. iv site in right forearm asymptomatic and intact. scds applied. bed in lowest position with call light within reach.
[2024-09-15] MEDS: OXYCODONE IR 10 MG TABLET PO (01:52)
[2024-09-15] MEDS: LACTATED RINGERS 1,000 ML 100 ML IV (01:52)
[2024-09-15 02:00] VITALS: BP 133/67; PULSE 76; TEMP 36.3; O2SAT 91
[2024-09-15] MEDS: CEFAZOLIN 2 GM/100 ML PREMIX 100 ML IV (04:01)
[2024-09-15 04:41] LABS: Hematocrit 33.7 % (36-46); Hemoglobin 11.4 g/dL (12.0-16.0)
[2024-09-15 06:00] VITALS: BP 147/70; PULSE 71; RESP 12; TEMP 36.5; O2SAT 94
--- NOTE | 2024-09-15 07:26 | PM.DS.1 ---
History of Present Illness History of Present Illness Date Patient Seen: 09/15/24 Time Patient Seen: 07:15 Chief complaint: Left Total Hip Arthroplasty Revision Narrative: The patient had a left total hip arthroplasty from an anterior approach. Unfortunately she developed posterior instability. She did have a minor amount of subsidence of her stem and felt that her leg was a little bit short. Non-operative management has failed and the patient has requested revision total hip replacement. She has a history of 2 dislocations. The risks, benefits and alternatives to surgery were discussed with the patient prior to proceeding. Risks discussed included, but were not limited to, failure to relieve pain, leg length discrepancy, dislocation, stiffness, infection, nerve damage, deep venous thrombosis, pulmonary embolism, stroke, coma, heart attack, permanent paralysis and , as well as the potential need for eventual revision of the prosthetic. Discharge Providers Provider Date of admission: 09/14/24 11:06 Discharge Date: 09/15/24 Primary care physician: Rani Mcgowan MD Consults: 09/14/24 06:00 Consult to Anesthesiology Routine Comment: Consulting Provider: Anesthesiologist Reason for consultation: Regional block for post operative pain control Has provider been notified: No 09/14/24 19:05 Consult to Discharge Planning Routine Comment: Consult to Occupational Therapy Evaluate & Treat Comment: Physician Instructions: Evaluate and treat Consult to Physical Therapy Evaluate & Treat Comment: Physician Instructions: post op SANDRA protocol Discharge provider: Gil Sherman PA-C Summary Hospital Course Discharge Diagnosis: 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 With hyperflexion the hip could be noted to sublux slightly posteriorly. Marked improvement in the in debility with dual mobility and lengthening Closure Type: primary Specimen(s): other (Culture and sensitivity and PCR) Prosthetic devices, grafts, tissues, transplants, or devices: [employer]hew dual mobility 52 liner, 28 mm +8 Oxinium head with dual mobility liner 40 x 28 Estimated Blood Loss (mL): 100 Blood products transfused: none Status at Discharge Cognitive/behavioral status at discharge: oriented Functional status at discharge: uses cane/walker Time Spent with Patient Time spent: Less than 30 minutes Exam Vital Signs (past 8 hours): - 09/14/24 23:46 09/15/24 02:00 09/15/24 06:00 Temperature 97.3 F L 97.7 F Pulse Rate 79 76 71 Respiratory Rate 12 Blood Pressure 134/61 133/67 147/70 H Pulse Oximetry 91 94 Oxygen Flow Rate 0 0 Oxygen Delivery Method Room Air Oxygen Flow Rate 0 Narrative Exam Narrative: 5/5 strength in hip flexors, quadriceps, hamstrings, DF, PF, EHL bilaterally. Sensation to light touch intact throughout BLE. Calves soft, compressible, nontender. ?Dressing placed intraoperatively CDI. Objective Labs 09/15/24 04:25 Labs: Laboratory Results - last 24 hr 09/15/24 04:25 Hgb 11.4 L Hct 33.7 L PFSH Medical History (Updated 09/06/24 @ 13:37 by Sulema Macias RN) Gout Osteoarthritis Rheumatoid arthritis Elevated cholesterol HTN (hypertension) Arthritis Asthma History of shingles History of pneumonia Concussion History of radius fracture Basal cell carcinoma Surgical History (Updated 09/06/24 @ 12:10 by Sulema Macias RN) History of total left hip replacement (07/01/23) History of kyphoplasty History of total knee arthroplasty History of total knee arthroplasty History of hemilaminectomy Hx of surgical procedure Hx of surgical procedure Hx of dilation and curettage Hx of tonsillectomy History of removal of skin mole History of hysterectomy Social History household members: none Smoking Status: Former smoker alcohol intake: former Discharge Assessment & Plan Assessment and Plan Assessment: Status post left hip total arthroplasty replacement Plan of Treatment: Discharge to home. The patient will be maintained on a standard total hip replacement protocol with weight bearing as tolerated and anterior hip and posterior precautions. Plan is to attempt keep her foot at neutral and avoid hip hyperflexion and adduction and hyperextension. The patient will receive Aspirin 81 mg bid for 6 weeks DVT prophylaxis. Baseline multimodal pain control with ibuprofen 400 mg and acetaminophen 500 mg q.4 hours PRN. Patient has been already prescribed oxycodone and Zofran and instructed in their use. She has been at home. Start physical therapy in the next 5-10 days. Follow up clinic in 2 weeks for wound check. Discharge Plan Discharge Plan Patient Disposition: Home Provider Discharge Comment: DC pending PT Discharge orders & Medications Prescriptions: Continued latanoprost 0.005 % Drops 1 drp OPHTHALMIC (EYE) QPM atorvastatin 10 mg Tablet 10 mg PO DAILY amlodipine 5 mg Tablet 7.5 mg PO DAILY alprazolam 0.25 mg Tablet 12.5 mg PO BEDTIME PRN (Reason: Insomnia) methotrexate sodium 15 mg Tablet 30 mg PO QWEEK Rx Instructions: split dose: 15mg am, 15mg pm ibuprofen 200 mg Tablet 200 mg PO Q6H PRN (Reason: Pain (Scale Score 1-3)) folic acid 1 mg Tablet 1,000 mcg PO BID montelukast [Singulair] 10 mg Tablet 10 mg PO DAILY colchicine 0.6 mg Tablet 0.6 mg PO BID losartan 100 mg Tablet 100 mg PO DAILY loratadine [Claritin] 10 mg Tablet 10 mg PO DAILY aspirin 81 mg Tablet,Delayed Release (Dr/Ec) 81 mg PO BID Qty: 84 0RF Patient Comments: For post op. oxycodone 5 mg Tablet 5 mg PO Q4-6H PRN (Reason: Pain, Moderate (4-6)) Qty: 40 0RF Patient Comments: for post op acetaminophen 325 mg tablet 650 mg PO TID sulfasalazine 500 mg Tablet 1 g PO BID Rx Instructions: give with food (meal/snack) duloxetine 40 mg Capsule,Delayed Release(Dr/Ec) 40 mg PO QPM Hadlima PushTouch 40 mg/0.8 mL Auto-Injector 40 mg SUBCUT Q2W ibandronate 150 mg Tablet 150 mg PO QMONTH pantoprazole 40 mg Tablet,Delayed Release (Dr/Ec) 40 mg PO DAILY Follow up/Referrals: Erika Mathis PA-C [Advanced Pediatric Cardiologist] - 09/27/24 1:00 pm (Appt:09/27 @ 1:00 with Jackie EVANGELISTA @ [facility] ) Rani Mcgowan MD [Primary Care Provider] - Diet/Activity/Treatments Diet: Diet as Tolerated Activity: Ambulate multiple times a day. Use a cane or walker as needed. Full weight on leg. Cold/Heat Therapy: Use ice multiple times a day. Skin/Wound/Dressing Care Report to your healthcare provider any signs of infection, such as:: chills, fever, night sweats, unusual drainage and unusual redness Dressing: May shower. Leave dressing in place until follow up in office. No bathing or otherwise soaking incision. Call the office if the dressing becomes saturated inside. Visit Report/Discharge Packet Instructions: DI for Hip Replacement Stand Alone Forms: Patient Portal/API, Stroke Signs & Symptoms, Surgery Discharge Discharge Data Primary Care Provider: Rani Mcgowan
[2024-09-15 08:06] VITALS: BP 136/72; PULSE 72; RESP 16; TEMP 36.3; O2SAT 97
[2024-09-15] MEDS: AMLODIPINE 5 MG TABLET 7.5 MG PO (09:41)
[2024-09-15] MEDS: LORATADINE 10 MG TABLET PO (09:42)
[2024-09-15] MEDS: ACETAMINOPHEN 325 MG TABLET 650 MG PO (09:42)
[2024-09-15] MEDS: ASPIRIN EC 81 MG TABLET PO (09:43)
[2024-09-15] MEDS: FOLIC ACID 1 MG TABLET PO (09:43)
[2024-09-15] MEDS: COLCHICINE 0.6 MG TABLET PO (09:43)
[2024-09-15] MEDS: DOCUSATE 100 MG CAPSULE PO (09:43)
--- NOTE | 2024-09-15 09:43 | OT.IP.EVAL ---
Current Diagnoses Unspecified dislocation of left hip, sequela (09/14/24) Presence of left artificial hip joint (09/14/24) Surgery Performed Operation Date: 09/14/24 13:45 Actual Procedures p Total Hip Arthroplasty Revision, Acetabular component, anterior(Left) - Nelly Slater MD Past Medical History (Last Updated 09/06/24 @ 13:37 by Sulema Macias, RN) Arthritis Asthma Basal cell carcinoma Concussion Elevated cholesterol Gout History of pneumonia History of radius fracture History of shingles HTN (hypertension) Osteoarthritis Rheumatoid arthritis Surgical History (Last Updated 09/06/24 @ 12:10 by Sulema Macias, RN) History of hemilaminectomy History of hysterectomy History of kyphoplasty History of removal of skin mole History of total knee arthroplasty History of total knee arthroplasty History of total left hip replacement (07/01/23) Hx of dilation and curettage Hx of surgical procedure Hx of surgical procedure Hx of tonsillectomy Occupational Therapy Inpatient Evaluation/Re-Eval M1 PT/OT-IP Prior Functional Status Start: 09/15/24 09:43 Freq: NEEDED Status: Active Protocol: Document 09/15/24 09:44 [facility] (Rec: 09/15/24 10:00 [facility] [id number]) Medical Review Prior Functional Status Communication I Mobility and Gait Occasional use of 4ww at times . Activities of Daily Living and IADL's Able to do all ADL and ADL needs. Prior Functional Level (Other details) Pt has had 2 hip dislocations in the past 2 weeks and here for S/P L SANDRA Social History Household Members none Living Arrangements House Number of Floors (Floors) One Floor Number of Stairs To Enter/Railing? Threshold to enter the house. Home Environment Standard Height Toilet,Walk in Shower,Bidet Home Equipment Front Wheel Walker,Four Wheel Walker,Straight Cane,Shower Seat with Backrest,Leg Runner Worker, Zinc Furnace Charger,Sock Aid,Grab Bars Near Toilet,Grab Bars In Shower Additional Social History Comment Pt states her daughters to alternate to assist her. M2 OT-IP Current Condition Start: 09/15/24 09:43 Freq: Status: Active Protocol: Document 09/15/24 09:44 [facility] (Rec: 09/15/24 10:00 [facility] [id number]) Occupational Therapy Current Condition Current Condition Evaluation Date 09/15/24 Treatment Diagnosis S/P L SANDRA Diagnosis Onset Date 09/14/24 Post Operative Precautions Posterior Hip Precautions No Hip Flexion > 90 degrees,No Hip Internal Rotation,No Hip Adduction Anterior Hip Precautions No Hip Extension,No Hip External Rotation Weight Bearing Status Weight Bearing Status Weight Bear as Tolerated M3 OT- IP Subjective and Pain Start: 09/15/24 09:43 Freq: Status: Active Protocol: Document 09/15/24 09:44 [facility] (Rec: 09/15/24 10:00 [facility] [id number]) OT- Subjective Occupational Therapy Visit Type Type Initial Evaluation Visit Start Time 09:00 Visit Stop Time :43 Occupational Therapy Visit Comments Patient Comments Pt wanting to use the toilet and get dressed. Patient/Caregiver Goals TO go home. OT Pain Assessment Pain When Pain Assessed At Rest Pain Present Pain Present Pain Reported Location Left Hip Intensity 1 Scale Used Numeric (0 - 10) M4 OT- IP ADL's Start: 09/15/24 09:43 Freq: Status: Active Protocol: Document 09/15/24 09:44 [facility] (Rec: 09/15/24 10:00 [facility] [id number]) OT [id number] General Evaluation Self-Feeding Ability Independent OT ADL-Grooming General Evaluation Grooming Ability Independent Comments OT Grooming Comments Pt able to wash her hands at the sink.. OT ADL-Oral Care Comments Oral Care Comments Not performed. OT ADL-Dressing General Eval Lower Body Dressing Ability Maximum Assistance Areas Needing Assistance Socks,Shoes Comments OT Dressing Comments Pt has LB dressing equipment at home and just wanting OT to assist with socks and shoes at this time. OT ADL-Toileting General Evaluation Toileting Ability Standby Assistance Comments OT Toileting Comments Pt able to use the toilet with SBA and mainly cues not to bend too far forwards while wiping. Pt has a bidet at home to use. OT ADL-Bathing Comments OT Bathing Comments Encouraged pt to have assist for showering needs at home. M5 OT- IP IADL's Start: 09/15/24 09:43 Freq: Status: Active Protocol: Document 09/15/24 09:44 [facility] (Rec: 09/15/24 10:00 [facility] [id number]) OT-Instrumental Activities of Daily Living Home Safety Awareness Awareness of Need for Assistance at Home Good Awareness Ability to Problem Solve Emergency Able to Problem Solve Situations Home Safety Comments At this time best for pt to have at least supervision mainly to remind her of her hip precautions and assist with showering and IADL needs. Medication Management Medication Management No Deficits Identified Money Management Money Management No Deficits Identified Meal Preparation Meal Preparation Caregiver Provides Assist Meal Preparation Comments Pt will benefit from assist. Cooking Show Host Cooking Show Host Caregiver Provides Assist Cooking Show Host Comments Pt will benefit from assist. M6 OT- IP Functional Cognition Start: 09/15/24 09:43 Freq: Status: Active Protocol: Document 09/15/24 09:44 [facility] (Rec: 09/15/24 10:00 [facility] [id number]) Cognitive Factors Limiting Selfcare Function Cognitive Ability Level of Alertness Alert Patient Orientation Name,Age,Birthday,Month,Date, Year,Day of Week,Place, Situation Attention Span Ability Capable of Focused Attention, Capable of Sustained Attention Ability to Follow Commands Able to Follow One Step Commands Memory Description Short Term Impaired Safety Awareness Decreased Recall of Precautions Cognitive Comments Cognitive Assessment Comments Pt not aware that she has anterior and posterior precautions and after educations still needing cues to recall and follow. Able to go over anterior and posterior precaution folders with pt. OT- Vision and Hearing OT- Hearing Assessment OT- Hearing Assessment WFL OT- Vision Assessment Visual Acuity Glasses All The Time Visual Attentiveness WFL Occular Pursuits WFL M7 OT- IP Mobility and Balance Start: 09/15/24 09:43 Freq: Status: Active Protocol: Document 09/15/24 09:44 [facility] (Rec: 09/15/24 10:00 [facility] [id number]) OT- Bed Mobility Assessment Supine to Sit Supine to Sit Assist Standby Assistance OT-Transfer Assessment Sit to and From Stand Sit to and from Stand Standby Assistance,Contact Guard Assistance Transfers Transfer Ability Standby Assistance Technique Transfer Destination Bed,Chair Transfer Technique Stand Step Pivot Devices Transfer Assistive Devices Gait Belt,Front Wheeled Walker Comments Mobility Comments Pt educated to keep her left toes up while getting into and out of the bed. Went over bed positioning needs with pt . CGA to stand and cues to follow precautions for mobility with fww. OT- Balance Assessment Sitting Balance and Reactions Static Sitting Balance Ability Normal Dynamic Sitting Balance Ability Normal Standing Balance and Reactions Static Standing Balance Ability Good Dynamic Standing Balance Ability Good M8 OT- IP Objective Assessments Start: 09/15/24 09:43 Freq: Status: Active Protocol: Document 09/15/24 09:44 [facility] (Rec: 09/15/24 10:00 [facility] [id number]) OT Gross Range of Motion Upper Extremity Range of Motion Assessment Bilaterally Impaired OT Strength Upper Extremity Strength Assessment Bilaterally Impaired OT- Coordination Assessment Comments Coordination Comments Arthritic changes in her hands . M9 OT- IP Assessment and Plan Start: 09/15/24 09:43 Freq: Status: Active Protocol: Document 09/15/24 09:44 [facility] (Rec: 09/15/24 10:00 [facility] [id number]) OT Summary Assessment and Plan Potential Rehabilitation Potential Excellent Analytic Complexity at Evaluation Low Summary OT Impairments Pain,Strength,Balance, Functional Mobility,Dressing, Toileting,Bathing,Toilet Transfers,Shower Transfers, Activity Tolerance Progress Towards Goals Progressing Toward Goals Assessment Summary Pt low complexity and main barriers are being able to recall and incorporate both anterior and posterior precautions during ADL and mobility needs. Pt also needing vc to slow down. Pt states to have home health initially at home until she is able to drive to her outpt appointments. Pt's daughters to alternate and stay with her . Goals Grooming Goal Independent Dressing Goal Independent,Zinc Furnace Charger,Sock Aid Toileting Goal Independent Bathing Goal Minimal Assistance Toilet Transfer Goal Independent Shower Transfer Goal Independent Days to Meet Goals 7 Frequency of Treatment Other frequency 5x/week Treatment Plan OT Treatment Plan ADL Training,Functional Mobility,Patient/Family Education,Discharge Planning Discharge Recommendations OT Discharge Recommendations Home with 09/06 Assist Available,Home Health Transportation Needs at Discharge Private Vehicle
--- NOTE | 2024-09-15 10:25 | PT.IIE ---
Current Diagnoses Unspecified dislocation of left hip, sequela (09/14/24) Presence of left artificial hip joint (09/14/24) Surgery Performed Operation Date: 09/14/24 13:45 Actual Procedures p Total Hip Arthroplasty Revision, Acetabular component, anterior(Left) - Nelly Patrick Slater MD Surgical History (Last Updated 09/06/24 @ 12:10 by Sulema Macias, RN) History of hemilaminectomy History of hysterectomy History of kyphoplasty History of removal of skin mole History of total knee arthroplasty History of total knee arthroplasty History of total left hip replacement (07/01/23) Hx of dilation and curettage Hx of surgical procedure Hx of surgical procedure Hx of tonsillectomy Medical History (Last Updated 09/06/24 @ 13:37 by Sulema Macias, RN) Arthritis Asthma Basal cell carcinoma Concussion Elevated cholesterol Gout History of pneumonia History of radius fracture History of shingles HTN (hypertension) Osteoarthritis Rheumatoid arthritis Physical Therapy Inpatient Evaluation/Re-Eval M1 PT/OT-IP Prior Functional Status Start: 09/15/24 09:43 Freq: NEEDED Status: Discharge Protocol: Document 09/15/24 09:44 [facility] (Rec: 09/15/24 10:00 [facility] [id number]) Medical Review Prior Functional Status Communication I Mobility and Gait Occasional use of 4ww at times . Activities of Daily Living and IADL's Able to do all ADL and ADL needs. Prior Functional Level (Other details) Pt has had 2 hip dislocations in the past 2 weeks and here for S/P L SANDRA Social History Household Members none Living Arrangements House Number of Floors (Floors) One Floor Number of Stairs To Enter/Railing? Threshold to enter the house. Home Environment Standard Height Toilet,Walk in Shower,Bidet Home Equipment Front Wheel Walker,Four Wheel Walker,Straight Cane,Shower Seat with Backrest,Leg Scalloper, Computer Typesetter Keyliner,Sock Aid,Grab Bars Near Toilet,Grab Bars In Shower Additional Social History Comment Pt states her daughters to alternate to assist here. M1 PT/OT-IP Prior Functional Status Start: 09/15/24 13:20 Freq: NEEDED Status: Active Protocol: Document 09/15/24 10:25 [facility] (Rec: 09/15/24 13:37 AB [id number]) Medical Review Prior Functional Status Medical History Reviewed Yes Communication able to make needs known Mobility and Gait pt stated that she was modified independent with all mobilities and ambulation without AD Activities of Daily Living and IADL's per OT note: Able to do all ADL and ADL needs. Prior Functional Level (Other details) Pt has had 2 hip dislocations in the past 2 weeks and here for S/P L SANDRA Social History Household Members none Living Arrangements House Number of Floors (Floors) One Floor Number of Stairs To Enter/Railing? no steps to enter Home Environment Standard Height Toilet,Walk in Shower,Built-In Shower Seat Home Equipment Front Wheel Walker,Four Wheel Walker,Grab Bars Near Toilet, Grab Bars In Shower Additional Social History Comment pt stated that her daughter will stay with her for 3-4 nights and afterwards will provide intermittent assist; pt stated that she has neighbors that can assist as well pt stated that she has HHPT set up M2 PT-IP Current Condition Start: 09/15/24 13:20 Freq: NEEDED Status: Active Protocol: Document 09/15/24 10:25 [facility] (Rec: 09/15/24 13:37 AB [id number]) Physical Therapy Current Condition Current Condition Evaluation Date 09/15/24 Treatment Diagnosis s/p L SANDRA revision; difficulty in walking Onset Date 09/14/24 M3 PT-IP Subjective Start: 09/15/24 13:20 Freq: NEEDED Status: Active Protocol: Document 09/15/24 10:25 AB (Rec: 09/15/24 13:37 AB [id number]) Subjective Physical Therapy Visit Type Type Initial Evaluation Visit Start Time 10:25 Visit Stop Time 11:00 Number of PBX REPAIRER Visits 0 Physical Therapy Visit Comments Patient Comments agreeable to do PT Therapy Pain Assessment Pain When Pain Assessed At Rest Pain Present Pain Present Pain Reported Location Left Hip Intensity 1 Scale Used Numeric (0 - 10) Pain Management Techniques Apply Cold,Distraction, Modification of Treatment,Re- positioning,Timing of Activity with Medications M4 PT-IP Mobility and Gait Start: 09/15/24 13:20 Freq: NEEDED Status: Active Protocol: Document 09/15/24 10:25 AB (Rec: 09/15/24 13:37 AB [id number]) PT-Bed Mobility Assessment Supine to Sit Supine to Sit Standby Assistance Sit to Supine Sit to Supine Standby Assistance PT-Transfer Assessment Sit to and From Stand Sit to and from Stand Standby Assistance,Contact Guard Assistance,Use of Upper Extremities Equipment Transfer Assistive Device Gait Belt,Front Wheeled Walker Orthotic/Prosthetic Devices or Brace: No Transfers Transfer Destination Bed,Chair Transfer Technique ambulated Transfer Ability Level of Assist Standby Assistance,Contact Guard Assistance,1 Person Assistance,Use of Upper Extremities Comments Mobility Comments pt sitting on the chair and agreeable to do PT. pt just finished with OT. asked pt regarding her hip precautions and only recalled 2/5. pt has both anterior and posterior hip precautions. educated pt on anterior and posterior hip precautions. daughter arrived and educated as well with pt' s hip precautions. pt completed sit to stand CGA and cues for hip precautions. pt ambulated to EOB using FWW SBA to CGA. cues for hip precautions again. completed sit to supine using safety belt as leg lieutenant firefighter SBA and cues. caregiver training conducted. educated pt's daughter on how to use safety belt and how to assist pt. daughter was able to put safety belt on and assisted pt with sit<>stand and ambulation to the chair using fWW SBA to CGA. reminded daughter to cues pt for hip precautions when needed. daughter understood. positioned pt on the chair. call light and table placed within reach. Gait Assessment Gait Gait Assistance Required: Standby Assistance,Contact Guard Assist Distance (Feet) 15 Able to Maintain Weight Bearing Status Yes During Gait Assistive Devices Assistive Device Gait Belt,Front Wheeled Walker Orthotic/Prosthetic Devices or Brace: No Gait Deviations General Gait Pattern Antalgic,Decreased Feet Clearance Factors Limiting Gait Function Factors Limiting Gait Function Decreased Activity Tolerance, Decreased Strength,Difficulty Following Directions,Limited Range of Motion,Pain,Poor Balance,Poor Safety Awareness PT-Balance Assessment Sitting Balance and Reactions Static Sitting Balance Ability Good Dynamic Sitting Balance Ability Good Standing Balance and Reactions Static Standing Balance Ability Good Dynamic Standing Balance Ability Fair Device Used FWW M5 PT-IP Objective Assessments Start: 09/15/24 13:20 Freq: NEEDED Status: Active Protocol: Document 09/15/24 10:25 AB (Rec: 09/15/24 13:37 AB [id number]) Orientation Orientation/Cognition Level of Alertness Alert Orientation Name Language Function Ability No Deficits Noted Safety Awareness Decreased Safety Awareness Memory Description Short Term Impaired Gross Range of Motion Lower Extremity ROM Assessment Within Functional Limits Strength Lower Extremity Strength Assessment Within Functional Limits Coordination Assessment Gross Coordination Gross Coordination WNL Muscle Tone Muscle Tone WNL Yes M6 PT-IP Treatment Start: 09/15/24 13:20 Freq: NEEDED Status: Active Protocol: Document 09/15/24 10:25 AB (Rec: 09/15/24 13:37 AB [id number]) Physical Therapy Treatment Education Education Provided Precautions,Weight Bearing Status,Safety M7 PT-IP Assessment and Plan Start: 09/15/24 13:20 Freq: NEEDED Status: Active Protocol: Document 09/15/24 10:25 AB (Rec: 09/15/24 13:37 AB [id number]) PT Summary Assessment and Plan Potential Rehabilitation Potential Fair Status of Condition at Evaluation Stable Summary Impairments Pain,ROM,Strength,Balance, Coordination,Sensation,Tone, Cognition,Bed Mobility, Transfers,Gait,Activity Tolerance Assessment Summary pt is a 79 y/o F s/p L SANDRA revision POD 1. pt with previous L SANDRA anterior approach but with posterior instability and needing revision. pt with both anterior and posterior hip precautions and is WBAT. pt requiring SBA to CGA and cues for her precautions. pt plans to go home with her daughter to assist her. caregiver training completed. pt may go home when medically stable. Goals Bed Mobility Goal Independent Transfer Goal Independent,Front Wheeled Walker Gait Goal Independent,Front Wheel Walker Gait Distance 300 Days to Meet Goals 5 Frequency of Treatment Frequency Of Treatment Twice a Day Treatment Plan Physical Therapy Treatment Plan Bed Mobility Training,Transfer Training,Gait Training, Therapeutic Exercise,Balance Retraining,Post Op Education, Discharge Planning,Hot or Cold Pack,Neuromuscular Re-ed, Coordination Retraining,Manual Therapy Precautions Posterior Hip Precautions No Hip Flexion > 90 degrees,No Hip Internal Rotation,No Hip Adduction Anterior Hip Precautions No Hip Extension,No Hip External Rotation Weight Bearing Status Weight Bearing Status Weight Bear as Tolerated Allowed Weight Bearing Amount (enter % LLE WBAT or #) (%) Recommendations To Nursing Amount of Assist Needed 1 Person Assist Discharge Recommendations PT Discharge Recommendations Home with 09/06 Assist Available,Home Health Transportation Needs at Discharge Private Vehicle
--- NOTE | 2024-09-15 11:58 | CM.DANOTE ---
Initial DCP Assessment Visit Note Reviewed EMR and team rounds for status updates. Met with pt at bedside to introduce self and role, pt was found to be dressed, sitting in the recliner, waiting for her dtr to arrive to transport her home. Pt was medically cleared for d/c this morning after working with therapies. She lives alone, modified independently with the use of a walker/cane in [place]. Her dtr is planning on staying with her for her initial postoperative recovery time for cg assistance/home needs. She declined any CM assistance or resources prior to d/c. Payor: Medicare Attending: Dr. Nelly Slater Pt is a 79 year-old F post-op day 1 fro a L-total hip arthroplasty revision surgery. She had a recent L-hip dislocation on 03/15/24, followed by 2-more dislocations prior to surgery. She has since been using a cane and/or a rolling walker around her house for mobility assistance, especially since her L-leg is slightly shorter than her R-leg as a result of her last hip surgery, which was completed on 07/01/2023. She expressed feeling that her pain was well managed, and she has all of the DME and assistance that she needs form home recovery. Discharge Planning/Care Management CM Discharge Assessment Start: 09/15/24 11:47 Freq: Status: Discharge Protocol: Document 09/15/24 11:47 DPL (Rec: 09/15/24 11:49 DPL [id number]) Discharge Planning Assessment Assigned Valve Tester ÓSCAR Meneses Advance Directives? Yes Advance Directives on File No History Provided By Patient,Medical Record Has Patient been admitted in last 30 No days? Prior Living Arrangements House Household Members none Type of transporation used prior to Drives own vehicle admit Independent with ADL's No: modified independent with use of a cane and/or walker Is patient alert and oriented? Yes Caregiver for Another No DME Already Rented / Owned Bath Bench,Elevated Toilet Seat,FWW / Walker,Cane Comment 4WW Patient/Family Preference OP PT Therapy Comment POD1 from left SANDRA, patient planned to return home w/ daughters to assist and therapies have cleared her for this plan, no needs from this CM team identified Discharge Plan Home Transportation Arrangement Family Referrals Initiated None needed Whiteboard Updated in Patient Room with Yes name and ext. # of Valve Tester Review Status In Process Please Provide Date Initial DC 09/15/24 Assessment Was Performed Pre-Anesthesia Assessment Start: 09/06/24 12:02 Freq: Status: Discharge Protocol: Document 09/06/24 12:02 LB (Rec: 09/06/24 12:12 LB [id number]) Pre-Anesthesia Assessment PAC Comment 09/06/24 Phone assessment. Preferred Name Tatianna Patient Information Reviewed Via Phone Assessment Assessment Completed With Patient Comment No testing identified. 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 No hip pain. Musculoskeletal Symptoms Back Pain History of Falling (Recent or History of No ) Patient is completely paralyzed or No completely immobile Prosthesis or Orthotic Device Front Wheel Walker Mental Status Oriented to own ability Comment Will bring walker. Is patient on oxygen? No Does patient have MILES/SOB No Hx Sleep Apnea No Currently Taking a Beta Aime No Can You Climb a Flight of Stairs Without Yes SOB Hx Chest Pain Yes: 1986 evaluated, no cause found Hx SOB No Hx Syncope or Dizziness Yes: 1986 evaluated, no cause found Anti-Coagulant Therapy No Has a Cell Tender No Cardiac Testing No Hx Pacemaker/ICD No Cardiac Clearance Received Not Applicable Dysphagia No Comment Recently stopped pantoprazole. Hx Urinary Self Catheterization No Diabetes No Patient No Lactating No Hx Drug Resistant Organism No Presence of External or Internal Medical Yes: [place]ul TKA, left wrist Devices hardware, left hip Have you had any close contact with No someone diagnosed with COVID-19? Are you experiencing any of these No symptoms symptoms? Received a COVID vaccine? Yes Lives With none Current Living Arrangements House Number of Floors (Floors) One Floor Number of Stairs To Enter/Railing? No steps to enter. Support System Child/Children Does the Patient Have Assistance After Yes Surgery Patient Discharge Plan Description Return Home Additional comment Advised overnight LOS. Do You Have Any Spiritual Beliefs That No May Affect Your HC Choices? Do You Have Any Cultural Practices That No May Affect Your HC Choices? Emergency Contact Name Zainab Rubin [phone] or Rani Rubin [phone] Emergency Contact Phone Number Zainab Rubin [phone] or Rani Rubin [phone] Advance Directives? Yes Advance Directives on File No Requested Patient Bring Advanced Yes Directives DOS PAC Instructions Assistance for 24 hours post- op,Durable medical equipment, Medications to take/avoid, Nasal antibiotic,No ETOH/ petroleum product on skin DOS, NPO,Post-op transportation,Pre -surgical wash,Sensory aids, Sturdy shoes/comfortable clothes,Do not bring valuables and remove jewelry
== END 2024-09-15 11:24 | disposition home or self-care (01) | DRG 468 ==
PROVIDERS: Admitting Provider Orthopaedic Surgery; PCP Family Medicine; Referring Provider Orthopaedic Surgery; Visit Provider Orthopaedic Surgery
PROC: 0SRS0JA Replacement of Left Hip Joint, Femoral Surface with Synthetic Substitute, Uncemented, Open Approach (ICD-10-PCS; principal; 2024-09-14 13:45)
DX: T84.021A Dislocation of internal left hip prosthesis, initial encounter (principal); I49.3 Ventricular premature depolarization; M65.95 Unspecified synovitis and tenosynovitis, thigh; I10 Essential (primary) hypertension; K21.9 Gastro-esophageal reflux disease without esophagitis; M10.9 Gout, unspecified; E78.5 Hyperlipidemia, unspecified; M06.9 Rheumatoid arthritis, unspecified; Z79.631 Long term (current) use of antimetabolite agent; Z87.891 Personal history of nicotine dependence
CPT/HCPCS: 36415; 73502; 73503; 76000; 85014; 85018; 87070; 87075; 87176; 87205; 87801; 97161; 97165; 97530; 97535; C1776; C9290; J0171; J0690; J1100; J1171; J2405; J2704; J3010; J3490